=== PATIENT | female | born 1985 | race Asian ===

== ENCOUNTER 2016-10-06 20:29 | Emergency (ER) | payer OTHER ==
[~2016-10-06] VITALS: Ht 154.9 cm; Wt 48.5 kg
[2016-10-06 20:55] VITALS: Ht 154.9 cm; Wt 48.5 kg
[2016-10-06] MEDS ORDERED: TETRACAINE 0.5% 4 ML OPH LEFT EYE ONE (22:30)
[2016-10-06] MEDS ORDERED: FLUORESCEIN STRIP LEFT EYE ONE (22:30)
[2016-10-06] MEDS ORDERED: PRED20TA PO (22:33)
[2016-10-06] MEDS ORDERED: ERYTOPOI BOTH EYES (22:33)
[2016-10-06 22:57] VITALS: BP 116/53; PULSE 79; RESP 20; TEMP 98.2
--- NOTE | 2016-10-06 23:24 | ERD ---
ER Documentation Chief Complaint Date/Time DATE: 10/06/16 TIME: 23:21 Chief Complaint LEFT EYE REDNESS WITH PAIN STARTING LAST MONDAY HPI 31-year-old female comes in the left eye redness and swelling to the lower eyelid that started last week after getting eyelash extensions. She states that she had swelling to both eyelids however has had continuing swelling as well as crusting to the lower eyelid on the left side. She has some an injection to the left eye however no visual changes or deficits or eye pain. Patient states that she tried taking Benadryl however did not help her she denies photophobia. She denies eye drainage. She denies wearing corrective lenses or contacts. ROS All systems reviewed and are negative except as per history of present illness. Medications Home Meds Active Scripts Prednisone* (Prednisone*) 20 Mg Tab, 40 MG PO DAILY for 4 Days, TAB Prov:FREDERICK NAGY PA-C 10/06/16 Erythromycin* (Erythromycin* Ophthalmic) 1 Applic Oint, 1 APPLIC BOTH EYES QID for 7 Days, EA Prov:FREDERICK NAGY PA-C 10/06/16 PMhx/Soc History of Surgery: No Anesthesia Reaction: No Hx Neurological Disorder: No Hx Respiratory Disorders: No Hx Cardiac Disorders: No Hx Psychiatric Problems: No Hx Miscellaneous Medical Probl: No Hx Alcohol Use: No Hx Substance Use: No Hx Tobacco Use: No Physical Exam Vitals Vital Signs Date Time Temp Pulse Resp B/P Pulse Ox O2 Delivery O2 Flow Rate FiO2 10/06/16 22:57 98.2 79 20 116/53 99 Room Air 10/06/16 20:55 98.6 87 18 134/84 98 Physical Exam General: Well-developed, well-nourished. The patient appears in no acute distress. HEENT: Head is normocephalic, atraumatic. No scleral icterus. Extraocular movements intact, there is conjunctival irritation that was seen on the left lateral portion of the conjunctiva, extraocular movements intact, eyes are Kirsten , no photophobia, there is lower eyelid swelling on the left side, there is slight crusting as well. Neck: Supple. Nontender. Lungs: Clear to auscultation. Normal air movement. Heart: Regular rate and rhythm. S1 and S2 are normal. No murmurs, gallops, or rubs. Abdomen: Nondistended. Extremities: No clubbing or cyanosis. Moving extremities x 4. No weakness. Neurologic: Alert and oriented 3. No focal deficits. Normal speech and gait. Skin: Normal turgor. No rash or lesions. Results 24 hrs Current Medications Medications (Trade) Dose Ordered Sig/Nighat Route PRN Reason Start Time Stop Time Status Last Admin Dose Admin Tetracaine HCl (Tetracaine 0.5% Steri-Unit Randi) 1 drop ONCE ONCE LEFT EYE 10/06/16 22:30 10/06/16 22:31 DC Fluorescein Sodium (Ntuib-R-Uwiwq) 1 strip ONCE ONCE LEFT EYE 10/06/16 22:30 10/06/16 22:31 DC Procedures/MDM 31-year-old female comes in with conjunctivitis likely from irritation from the glue, and lashes are applied a week ago. Some irritation started the next day. Patient does have some crusting and will be given erythromycin ointment, she was advised to do compresses and take prednisone and she states the Benadryl was not helping at home. Denies any signs of orbital or periorbital cellulitis , corneal ulceration, iritis, acute angle-closure glaucoma. Departure Diagnosis: Primary Impression: Conjunctivitis Condition: Good Patient Instructions: Conjunctivitis Caused by Irritation Additional Instructions: Call your primary care doctor TOMORROW for an appointment during the next 1-2 days.See the doctor sooner or return here if your condition worsens before your appointment time. FREDERICK NAGY PA-C Oct 06, 2016 23:24
== END 2016-10-06 22:58 | disposition home or self-care (01) ==
LOC: FTE 20:29
DX: H10.9 Unspecified conjunctivitis (principal)
CPT/HCPCS: Z7502; Z7610; 99284